=== PATIENT | female | born 1995 | race Caucasian/White ===

== ENCOUNTER 2018-08-15 17:18 | Emergency (ER) | payer SELFPAY ==
[~2018-08-15] VITALS: Ht 172.7 cm; Wt 114.4 kg
[2018-08-15 17:40] VITALS: Ht 172.7 cm; Wt 114.4 kg
--- NOTE | 2018-08-15 18:54 | ERD ---
ER Documentation Chief Complaint Chief Complaint Sent from Work for eval right leg/foot pain after a gait fell on foot HPI 22-year-old female, previously healthy, with exception of hypertension currently on lisinopril and hydrochlorothiazide, presents the emergency department, sent by her work for evaluation of right foot injury that occurred approximately at 3:30 PM while the patient was working at [employer] and a heavy gait fell onto her foot. The pain is dull, constant, 6/10, worse in the toes area, the patient has not been able to ambulate. ROS All systems reviewed and are negative except as per history of present illness. Medications Home Meds Active Scripts Ibuprofen* (Motrin*) 400 Mg Tab, 400 MG PO Q6H PRN for PAIN AND OR ELEVATED TEMP, #20 TAB Prov:NELSON GALVAN MD 08/15/18 Allergies Allergies: Coded Allergies: No Known Allergy (Unverified , 08/15/18) PMhx/Soc Hx Cardiac Disorders: Yes (htn) Hx Alcohol Use: No Hx Substance Use: No Hx Tobacco Use: No Smoking Status: Never smoker FmHx Family History: No diabetes, No coronary disease Physical Exam Vitals Vital Signs Date Temp Pulse Resp B/P (MAP) Pulse Ox O2 O2 Flow FiO2 Time Delivery Rate 08/15/18 99.2 89 20 160/94 99 17:40 (116) Physical Exam Const: No acute distress Head: Atraumatic Eyes: Normal Conjunctiva ENT: Normal External Ears, Nose and Mouth. Neck: Full range of motion. No meningismus. Resp: Clear to auscultation bilaterally Cardio: Regular rate and rhythm, no murmurs Abd: Soft, non tender, non distended. Normal bowel sounds Skin: No petechiae or rashes Back: No midline or flank tenderness Ext: Right foot: Normal inspection, tenderness over the mid food and great toe, full range of motion, distal neurovascular exam intact. Neur: Awake and alert Psych: Normal Mood and Affect Results 24 hrs Patient: CARLOS TORRES : 1995 Age: 22 Sex: F MR #: [id number] DOS: 08/15/18 1853 Ordering MD: NELSON GALVAN MD Location: [facility] Room/Bed: PROCEDURE: XR Foot. CLINICAL INDICATION: Toes midfoot blunt injury, pain TECHNIQUE: AP, lateral and oblique views of the right foot was obtained. The images were reviewed on a PACS workstation. COMPARISON: None. FINDINGS: The bones of the foot appear intact, with no evidence of fracture, dislocation, or subluxation. The joint spaces are preserved. Bone mineralization is normal. Mild dorsal soft tissue swelling. IMPRESSION: Mild dorsal soft tissue swelling. No acute fracture seen. Procedures/MDM Acute right foot injury: no red flags. Differential diagnosis include but not limited to: sprain/strain, ligament injury, arthritis, fracture, dislocation, low suspicion for septic arthritis. Neurovascular exam grossly intact. no clinical findings suggestive of acute infectious process, no deformity, no rashes. Pertinent Data: X-rays: No fracture or dislocation Physical examination and clinical presentation consistent most likely with contusion of the right foot . During the ED course the patient received treatment with Ortho shoe of the right lower extremity and crutches presenting overall improvement of the symptoms. Results and clinical impression discussed with patient who agrees with management. The patient is stable to be treated outpatient and will be discharged home with recommendations for ice, rest and partial immobilization. NSAIDs 3 times daily for 5 days and close monitoring. The patient was instructed to follow up with the primary care provider in the next 48h. If symptoms persist, worsen or new symptoms develop, then patient sh ould return to the ED immediately. Instructions explained and given to patient with acknowledgment and demonstrated understanding. Disclaimer: Inadvertent spelling and grammatical errors are likely due to EHR/dictation software use and do not reflect on the overall quality of patient care. Also, please note that the electronic time recorded on this note does not necessarily reflect the actual time of the patient encounter. Departure Diagnosis: Primary Impression: Injury of right foot Additional Impression: Work related injury Condition: Stable Patient Instructions: Contusion, Foot Additional Instructions: Thank you very much for allowing us to participate in your care. Your health and safety is our top priority at [facility]. Call your primary care doctor TOMORROW for an appointment during the next 2-4 days and bring all the information provided. Have prescriptions filled and follow precisely the directions on the label. If the symptoms get worse and your provider is unavailable, return to the Emergency Department immediately. NELSON GALVAN MD August 15, 2018 18:54
[2018-08-15] MEDS ORDERED: IBUP-1561 PO (20:21)
[2018-08-15 20:40] VITALS: BP 154/88; PULSE 74; RESP 18
== END 2018-08-15 20:41 | disposition home or self-care (01) ==
LOC: FTE 17:18
DX: S99.921A Unspecified injury of right foot, initial encounter (principal); I10 Essential (primary) hypertension; W18.39XA Other fall on same level, initial encounter; Y92.89 Other specified places as the place of occurrence of the external cause
CPT/HCPCS: 73630